=== PATIENT | male | born 1980 | race Two or more races ===

== ENCOUNTER 2023-12-01 15:06 | Emergency (ER) | payer OTHER ==
[~2023-12-01] VITALS: Ht 167.6 cm; Wt 84.0 kg
[2023-12-01] MEDS: SODIUM CHLORIDE 0.9% 1,000 ML IV ONE (15:57)
[2023-12-01] MEDS: ONDANSETRON HCL 4 MG/2 ML VIAL IV ONE (15:58)
[2023-12-01] MEDS: MECLIZINE HCL 25 MG TAB PO ONE (15:58)
[2023-12-01] MEDS: KETOROLAC TROMETH 30 MG/ML 1ML VIAL IV ONE (15:58)
[2023-12-01] MEDS: METOCLOPRAMIDE HCL 5MG/ml INJ 2ml VIAL IV ONE (15:59)
[2023-12-01 16:05] VITALS: TEMP 97
[2023-12-01 16:36] LABS: Basophils # (auto) 0 10 ^3/uL (0-0.2); Basophils % (auto) 0.1 % (0.0-2.0); Eosinophils # (auto) 0.1 10 ^3/uL (0-0.8); Eosinophils % (auto) 1.1 % (0.0-7.0); Hemoglobin 17.1 g/dL (13.5-17.5); Lymphocytes # (auto) 0.4 10 ^3/uL (0.4-5.4); Lymphocytes % (auto) 5.2 % (10.0-50.0); Mean Corpuscular Hemoglobin 30.2 pg (28.0-32.0); Mean Corpuscular Hgb Conc. 33.5 g/dL (32.0-36.0); Monocytes # (auto) 0.3 10 ^3/uL (0-1.3); Monocytes % (auto) 3.5 % (0.0-12.0); Neutrophils # (auto) 7.5 10 ^3/uL (1.6-8.6); Neutrophils % (auto) 90.1 % (37.0-80.0); Platelet Count (auto) 195 10^3/uL (140-450); Red Blood Cells 5.67 10^6/uL (4.5-5.90); Red Cell Distribution Width 15.6 % (11.8-14.3); White Blood Cell 8.3 10^3/uL (4.4-10.8)
[2023-12-01 16:54] LABS: Alanine Aminotransferase 26 U/L (7-40); Albumin 4.4 g/dL (3.2-4.8); Alkaline Phosphatase 99 U/L (46-116); Anion Gap 5 (5-15); Aspartate Aminotransferase 19 U/L (13-40); BUN/Creatinine Ratio 11.6 (10.0-20.0); Bilirubin, Total 0.9 mg/dL (0.2-1.0); Blood Urea Nitrogen 16 mg/dL (9-23); Calcium 9.3 mg/dL (8.7-10.4); Carbon Dioxide 27 mmol/L (20-31); Chloride 107 mmol/L (98-107); Glucose 121 mg/dL (74-106); Potassium 4.4 mmol/L (3.5-5.1); Sodium 139 mmol/L (136-145); Total Protein 7.1 g/dL (5.7-8.2)
[2023-12-01] MEDS ORDERED: ZOFR4T PO (17:16)
[2023-12-01] MEDS ORDERED: MECL25CH38 PO (17:16)
[2023-12-01 18:06] VITALS: BP 138/87; PULSE 102; RESP 17; O2SAT 98
== END 2023-12-01 18:20 | disposition home or self-care (01) ==
LOC: ER 15:06
DX: K52.9 Noninfective gastroenteritis and colitis, unspecified (principal); B34.9 Viral infection, unspecified; R42 Dizziness and giddiness; F12.10 Cannabis abuse, uncomplicated
CPT/HCPCS: 36415; 80053; 82962; 85025; 96361; 96374; 96375; 99284; J1885; J2405; J7030; J8597

== ENCOUNTER 2023-12-04 00:34 | Emergency (ER) | payer OTHER ==
[~2023-12-04] VITALS: Ht 167.6 cm; Wt 85.0 kg
[~2023-12-04 00:34] MED LIST: MECL25CH38 PO; ZOFR4T PO
[2023-12-04 02:31] LABS: Basophils # (auto) 0 10 ^3/uL (0-0.2); Basophils % (auto) 0.3 % (0.0-2.0); Eosinophils # (auto) 0.2 10 ^3/uL (0-0.8); Eosinophils % (auto) 3.1 % (0.0-7.0); Lymphocytes # (auto) 2.9 10 ^3/uL (0.4-5.4); Lymphocytes % (auto) 48.5 % (10.0-50.0); Mean Corpuscular Hemoglobin 30.8 pg (28.0-32.0); Mean Corpuscular Volume 90.6 fL (80.0-100.0); Monocytes # (auto) 0.5 10 ^3/uL (0-1.3); Monocytes % (auto) 9.1 % (0.0-12.0); Neutrophils # (auto) 2.3 10 ^3/uL (1.6-8.6); Platelet Count (auto) 205 10^3/uL (140-450); Red Blood Cells 4.53 10^6/uL (4.5-5.90); Red Cell Distribution Width 14.8 % (11.8-14.3); White Blood Cell 5.9 10^3/uL (4.4-10.8)
[2023-12-04 02:39] LABS: Alanine Aminotransferase 26 U/L (7-40); Albumin 4.2 g/dL (3.2-4.8); Alkaline Phosphatase 88 U/L (46-116); Anion Gap 4 (5-15); Aspartate Aminotransferase 13 U/L (13-40); BUN/Creatinine Ratio 9.5 (10.0-20.0); Blood Urea Nitrogen 10 mg/dL (9-23); Calcium 9.3 mg/dL (8.7-10.4); Carbon Dioxide 29 mmol/L (20-31); Chloride 108 mmol/L (98-107); Glucose 86 mg/dL (74-106); Lipase 26 U/L (12-53); Potassium 3.9 mmol/L (3.5-5.1); Sodium 141 mmol/L (136-145)
[2023-12-04 02:40] LABS: Bilirubin, Total 0.2 mg/dL (0.2-1.0); Total Protein 6.4 g/dL (5.7-8.2)
[2023-12-04] MEDS: LIDOCAINE VISCOUS 2% 15ML UD MT ONE (03:39)
[2023-12-04] MEDS: ONDANSETRON ODT 4 MG TAB PO ONE (03:39)
[2023-12-04] MEDS: MAALOX PLUS or MAALOX 30 ML PO ONE (03:39)
[2023-12-04 03:40] VITALS: BP 142/96; PULSE 87; RESP 18; O2SAT 100
== END 2023-12-04 03:46 | disposition home or self-care (01) ==
LOC: ER 00:34
DX: K29.00 Acute gastritis without bleeding (principal); I10 Essential (primary) hypertension; F17.210 Nicotine dependence, cigarettes, uncomplicated; Z79.899 Other long term (current) drug therapy
CPT/HCPCS: 36415; 80053; 82962; 83690; 85025; 99284; Q0162